=== PATIENT | male | born 1960 | race American Indian/Alaskan Native ===

== ENCOUNTER 2018-10-25 16:06 | Emergency (ER) | payer OTHER ==
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
[2018-10-25] MEDS ORDERED: ZOFRAN IV ONE (17:01)
[2018-10-25] MEDS ORDERED: MORPHINE IV ONE (17:01)
[2018-10-25 17:14] LABS: Basophils # (Auto) 0.1 K/mm3 (0.0-0.1); Eosinophils # (Auto) 0.2 K/mm3 (0.0-0.4); Eosinophils % (Auto) 4.7 % (0.0-4.3); Hematocrit 39.5 % (35.5-45.6); Hemoglobin 13.6 gm/dl (11.8-15.2); Lymphocytes # (Auto) 1.2 K/mm3 (1.2-5.4); Lymphocytes % (Auto) 23.8 % (13.4-35.0); Mean Corpuscular HGB Conc 34 % (32-34); Mean Corpuscular Volume 84 fl (84-94); Monocytes # (Auto) 0.4 K/mm3 (0.0-0.8); Monocytes % (Auto) 8.6 % (0.0-7.3); Platelet Count 301 K/mm3 (140-440); Red Blood Count 4.73 M/mm3 (3.65-5.03); Red Cell Distribution Width 14.4 % (13.2-15.2)
--- NOTE | 2018-10-25 17:16 | XRay Report ---
Rib series-4 views INDICATION: Acute generalized left-sided rib pain. COMPARISON: None. IMPRESSION: No acute osseous or soft tissue abnormality. No significant DJD. Signer Name: Wu Amaya MD Signed: 10/25/2018 5:11 PM Workstation Name: [id number]
[2018-10-25 17:37] LABS: Alanine Aminotransferase 17 units/L (7-56); Albumin 4.5 g/dL (3.9-5); BUN/Creatinine Ratio 18; Blood Urea Nitrogen 18 mg/dL (9-20); Calcium 9.9 mg/dL (8.4-10.2); Hemolysis Index 16
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
[2018-10-25] MEDS ORDERED: NACL 0.9% 1000 ML 1,000 ML IV ONE (18:06)
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
[2018-10-25] MEDS ORDERED: ZOFRAN ODT PO ONE (19:22)
[2018-10-25] MEDS ORDERED: NORCO 10/325 PO ONE (19:22)
[2018-10-25 19:51] VITALS: BP 114/71
== END 2018-10-25 19:49 | disposition home or self-care (01) ==
LOC: ED 16:06
DX: S16.1XXA Strain of muscle, fascia and tendon at neck level, initial encounter (principal); S29.9XXA Unspecified injury of thorax, initial encounter; S09.90XA Unspecified injury of head, initial encounter; R10.12 Left upper quadrant pain; V89.2XXA Person injured in unspecified motor-vehicle accident, traffic, initial encounter; Y93.89 Activity, other specified; Y92.410 Unspecified street and highway as the place of occurrence of the external cause; Y99.8 Other external cause status
CPT/HCPCS: 36415; 70450; 71101; 71260; 72125; 74177; 80053; 85025; 96374; 96375; 99285; J2270; J2405; J7030; Q9967; Q0162